=== PATIENT | male | born 2000 | race Two or more races ===

== ENCOUNTER 2021-05-20 02:10 | Emergency (ER) | payer MEDICAID, OTHER ==
[~2021-05-20] VITALS: Ht 172.7 cm; Wt 88.5 kg
--- NOTE | 2021-05-20 02:13 | NUR ---
PT AAOX4. [id number] C/O INJURY TO LEFT HAND FROM CLOSING CLOSET DOOR. ER MD AT BEDSIDE FOR EVAL. AWAITING ORDERS.
[2021-05-20] MEDS ORDERED: LIDOCAINE 1% INJ 50 ML MDV IJ ONE (02:27)
--- NOTE | 2021-05-20 03:00 | NUR ---
RAD AT BEDSIDE
--- NOTE | 2021-05-20 03:25 | NUR ---
EMT AT BEDSIDE FOR FINGER SPLINT
[2021-05-20] MEDS ORDERED: KETO10TA2 PO (03:38)
--- NOTE | 2021-05-20 03:51 | NUR ---
Patient discharged to home in stable condition. Written and verbal after care instructions given. Patient verbalizes understanding of instruction and RX. Pt ambulated out of ED. VSS.
[2021-05-20 03:55] VITALS: BP 121/75
== END 2021-05-20 03:56 | disposition home or self-care (01) ==
LOC: ER 02:12
DX: S61.213A Laceration without foreign body of left middle finger without damage to nail, initial encounter (principal); S61.215A Laceration without foreign body of left ring finger without damage to nail, initial encounter; W23.0XXA Caught, crushed, jammed, or pinched between moving objects, initial encounter; Y93.89 Activity, other specified; Y92.89 Other specified places as the place of occurrence of the external cause; Y99.8 Other external cause status
CPT/HCPCS: 12002; 73130; 99283; J3490

== ENCOUNTER 2021-06-06 18:12 | Emergency (ER) | payer MEDICAID ==
[~2021-06-06] VITALS: Ht 180.3 cm; Wt 117.9 kg
[~2021-06-06 18:12] MED LIST: KETO10TA2 PO
--- NOTE | 2021-06-06 18:22 | NUR ---
CALLED TO TRIAGE,NO ANSWER
[2021-06-06 18:38] VITALS: BP 124/62
== END 2021-06-06 18:50 | disposition home or self-care (01) ==
LOC: ER 18:16
DX: S61.213D Laceration without foreign body of left middle finger without damage to nail, subsequent encounter (principal); Z79.899 Other long term (current) drug therapy; X58.XXXD Exposure to other specified factors, subsequent encounter